=== PATIENT | male | born 1980 | race Caucasian/White ===

== ENCOUNTER 2018-05-26 22:51 | Emergency (ER) | payer MEDICAID ==
[~2018-05-26] VITALS: Ht 177.8 cm; Wt 72.6 kg
[2018-05-26 22:52] VITALS: BP_SYST 132
[2018-05-26 23:52] VITALS: BP_SYST 129
== END 2018-05-26 23:52 ==
LOC: SED 22:51
DX: S90.822A Blister (nonthermal), left foot, initial encounter (principal); R03.0 Elevated blood-pressure reading, without diagnosis of hypertension; Z88.6 Allergy status to analgesic agent; X58.XXXA Exposure to other specified factors, initial encounter; Y93.89 Activity, other specified; Y92.89 Other specified places as the place of occurrence of the external cause; Y99.8 Other external cause status
CPT/HCPCS: 99283

== ENCOUNTER 2023-08-09 16:43 | Emergency (ER) | payer MEDICAID ==
[~2023-08-09] VITALS: Ht 182.9 cm; Wt 90.7 kg
[2023-08-09 16:53] VITALS: BP_SYST 114; PULSE 68; RESP 18; TEMP 97; O2SAT 96
[2023-08-09] MEDS ORDERED: LORA-259 PO (17:28)
[2023-08-09] MEDS ORDERED: LORazepam 1 MG TABLET PO ONE (17:45)
[2023-08-09 18:57] VITALS: BP_SYST 114; PULSE 68; RESP 18; TEMP 97; O2SAT 96
== END 2023-08-09 19:02 | disposition home or self-care (01) ==
LOC: SED 16:43
DX: F41.9 Anxiety disorder, unspecified (principal); Z76.0 Encounter for issue of repeat prescription; Z88.5 Allergy status to narcotic agent
CPT/HCPCS: 99281

== ENCOUNTER 2024-05-06 01:34 | Emergency (ER) | payer MEDICAID ==
[~2024-05-06] VITALS: Ht 177.8 cm; Wt 79.4 kg
[~2024-05-06 01:34] MED LIST: LORA-259 PO
[2024-05-06 01:41] VITALS: BP_SYST 113; PULSE 86; RESP 18; TEMP 97.4; O2SAT 97
[2024-05-06 02:02] VITALS: BP_SYST 142; PULSE 87; RESP 18; TEMP 98.2; O2SAT 97
== END 2024-05-06 02:17 | disposition home or self-care (01) ==
LOC: SED 01:34
DX: L05.91 Pilonidal cyst without abscess (principal); F41.9 Anxiety disorder, unspecified; Z88.6 Allergy status to analgesic agent; Z79.899 Other long term (current) drug therapy
CPT/HCPCS: 99282